=== PATIENT | female | born 1975 | race Caucasian/White ===

== ENCOUNTER 2019-12-27 05:43 | Day surgery (SDC) | payer OTHER ==
[~2019-12-27] VITALS: Ht 175.3 cm; Wt 105.6 kg
[2019-12-27] VITALS (10 sets, daily range): BP systolic 94–127; BP diastolic 49–68; PULSE 60–99; TEMP 97.3–98.4
[~2019-12-27 05:43] MED LIST: ASPIRIN E.C. 8181 MG PO
--- NOTE | 2019-12-27 06:04 | NUR ---
Patient arrives to [facility] [place] pre[place] admission. She is alert and oriented. Procedure is confirmed. She denies any questions and verbalizes understanding. She changes to her gown independently. Breath sounds are clear bilaterally to auscultation. Clear S1S2 heart tones are heard with regular rate noted. PERRLA, +2 pupils. +2 radial pulses bilaterally. Denies pain, numbness, tingling.
[2019-12-27] MEDS ORDERED: PERCOCET 325 MG1 TA2 PO (07:02)
[2019-12-27] MEDS ORDERED: MOTRIN 800800 MG/TAB PO (07:02)
[2019-12-28 00:45] VITALS: BP 125/58; PULSE 94; TEMP 98.6
[2019-12-28 04:30] VITALS: BP 134/64; PULSE 76; TEMP 98.7
[2019-12-28 08:00] VITALS: BP 129/67; PULSE 78; TEMP 97.8
== END 2019-12-28 11:10 | disposition home or self-care (01) ==
LOC: SDCO 05:43 → OB 12:30 → SDCO 12-28 11:10
DX: N88.8 Other specified noninflammatory disorders of cervix uteri (principal); K21.9 Gastro-esophageal reflux disease without esophagitis; Z79.82 Long term (current) use of aspirin; N81.11 Cystocele, midline; N39.41 Urge incontinence; M19.90 Unspecified osteoarthritis, unspecified site
CPT/HCPCS: OP; A4314; C1781; G0378; J0690; J1100; J1885; J2405; J2704; J2710; J3010; J7120